=== PATIENT | male | born 1970 | race Caucasian/White ===

== ENCOUNTER 2019-07-28 17:37 | Emergency (ER) | payer OTHER ==
[~2019-07-28] VITALS: Ht 175.3 cm; Wt 81.6 kg
== END 2019-07-28 19:36 | disposition home or self-care (01) ==
LOC: ER 17:37
DX: S40.012A Contusion of left shoulder, initial encounter (principal); W18.39XA Other fall on same level, initial encounter; Y93.89 Activity, other specified; Y92.89 Other specified places as the place of occurrence of the external cause; Y99.8 Other external cause status

== ENCOUNTER 2020-05-10 20:51 | Emergency (ER) | payer OTHER ==
[~2020-05-10] VITALS: Ht 175.3 cm; Wt 81.6 kg
== END 2020-05-10 22:14 | disposition home or self-care (01) ==
LOC: ER 20:51
DX: L03.011 Cellulitis of right finger (principal)